=== PATIENT | male | born 1970 | race Caucasian/White ===

== ENCOUNTER → 2016-12-21 | Outpatient (CLI) | payer BC ==
[2016-12-21 11:49] LABS: CH 30.5; CHCM 34.9; HCT 46.1 % (39.0-53.0); HDW 2.76; HGB 15.8 gm/dL (13.0-17.5); MCHC 34.2 g/dL (31.0-37.0); MCV 87.8 fL (80.0-100.0); Mean Platelet Volume 6.7; RBC 5.25 m/uL (4.30-5.90); RDW 12.9 % (11.5-15.5); WBC 6.9 k/uL (3.8-10.6)
[2016-12-21 12:31] LABS: Anion Gap 12 mmol/L; Blood Urea Nitrogen 28 mg/dL (9-20); Carbon Dioxide 29 mmol/L (22-30); Chloride 100 mmol/L (98-107); Non-African American GFR(MDRD) >60 (>60 ml/min/1.73 sqM); Potassium 4.9 mmol/L (3.5-5.1); Sodium 141 mmol/L (137-145)
== END | disposition home or self-care (01) ==
LOC: LABWHC1 10:23
PROVIDERS: ATTEND Internal Medicine Cardiovascular Disease
DX: E78.2 Mixed hyperlipidemia (principal); I10 Essential (primary) hypertension; R06.02 Shortness of breath
CPT/HCPCS: 36415; 80051; 82565; 84443; 84520; 85027

== ENCOUNTER → 2017-12-10 | Outpatient (CLI) | payer BC ==
--- NOTE | 2017-12-10 08:13 | MR ---
EXAMINATION TYPE: MR lumbar spine wo con DATE OF EXAM: 12/10/2017 7:13 AM COMPARISON: NONE HISTORY: Radiculopathy, lumbar region, lower back pain, numbness in legs Multiplanar, MultiSpin echo imaging of the lumbar spine was performed. L1-L2: There is mild decreased signal and loss of height compatible with degenerative disc disease. M ild circumferential disc bulge greatest posteriorly. Mild effacement ventral thecal sac. No evidence for link disc herniation or central stenosis. Visualized neural foramina are patent bilaterally. L2-L3: There is mild decreased signal and loss of height compatible with degenerative disc disease. M ild circumferential disc bulge greatest posteriorly. Mild effacement ventral thecal sac. No evidence for link disc herniation or central stenosis. Visualized neural foramina are patent bilaterally. L3-L4: There is mild decreased signal and loss of height compatible with degenerative disc disease. M ild circumferential disc bulge greatest posteriorly. Mild effacement ventral thecal sac. No evidence for link disc herniation or central stenosis. Degenerative changes of the facet joints resulting in mild right-sided foraminal encroachment. L4-L5: There is mild decreased signal and loss of height compatible with degenerative disc disease. M ild circumferential disc bulge greatest posteriorly. Mild effacement ventral thecal sac. No evidence for link disc herniation or central stenosis. Facet joint arthropathy resulting in bilateral mild. L5-S1: Severe disc desiccation noted. Broad-based posterior disc bulge with annular tear. Small protr usion is difficult to exclude. No evidence for central stenosis or lateral recess stenosis. Facet martha nt arthropathy resulting in bilateral foraminal encroachment. Generative endplate marrow changes shelton ntified. Lumbar segments are intact. No paraspinal masses are identified. Conus medullaris has a normal appe arance. T12 hemangioma identified. IMPRESSION: 1. Multilevel degenerative disc disease. 2. Multilevel disc bulging with some mild foraminal encroachment. See above.
== END | disposition home or self-care (01) ==
LOC: RADMRIMAIN 06:43
PROVIDERS: ATTEND Family Medicine
DX: M51.17 Intervertebral disc disorders with radiculopathy, lumbosacral region (principal)
CPT/HCPCS: 72148

== ENCOUNTER → 2018-09-09 | Outpatient (CLI) | payer BC ==
--- NOTE | 2018-09-09 10:01 | EST ---
EXERCISE STRESS AGE: 48 SEX: M HT: 70" WT: 225 PROTOCOL: Behzad Stress Test STAGE: 4 DURATION OF EXERCISE: 10:00 HEART RATE REST: 67 BLOOD PRESSURE REST: 122/73 MAXIMUM HEART RATE ACHIEVED: 154 MAXIMUM BLOOD PRESSURE: 198/65 85% MPHR: 147 100% MPHR: 173 METS: 11.3 INDICATIONS: Chest pain. CLINICAL INFORMATION: Baseline heart rate was 67 beats per minute. Baseline blood pressure 122/73 mmHg. Baseline 12-lead ECG shows normal sinus rhythm with normal cardiac intervals. Patient exercised on a Behzad protocol for 10 minutes achieving a peak heart rate of 154 beats per minute. Normal blood pressure response to exercise. There was no ECG evidence for ischemia. No arrhythmias were noted. IMPRESSION: Good exercise capacity without any ECG evidence for ischemia or arrhythmia. MMODL / IJN: [id number] /
== END | disposition home or self-care (01) ==
LOC: RADNMMAIN 08:26
PROVIDERS: ATTEND Family Medicine
DX: R07.89 Other chest pain (principal)
CPT/HCPCS: 93017

== ENCOUNTER → 2018-09-15 | Outpatient (CLI) | payer BC ==
--- NOTE | 2018-09-16 11:41 | ECHOF ---
Referral Reason:R07.89 Chest Pain MEASUREMENTS -------- HEIGHT: 182.9 cm WEIGHT: 102.1 kg BP: RVIDd: 2.5 cm (< 3.3) IVSd: 1.1 cm (0.6 - 1.1) LVIDd: 4.8 cm (3.9 - 5.3) LVPWd: 1.3 cm (0.6 - 1.1) IVSs: 1.5 cm LVIDs: 2.8 cm LVPWs: 1.8 cm Ao Diam: 3.1 cm (2.0 - 3.7) AV Cusp: 1.9 cm (1.5 - 2.6) LA Diam: 3.3 cm (2.7 - 3.8) MV EXCURSION: 21.171 mm (> 18.000) MV EF SLOPE: 131 mm/s (70 - 150) EPSS: 0.5 cm MV E Tu: 0.75 m/s MV DecT: 126 ms MV A Tu: 0.37 m/s MV E/A Ratio: 2.04 RAP: 5.00 mmHg RVSP: 15.44 mmHg FINDINGS -------- Sinus rhythm. This was a technically good study. The left ventricular size is normal. There is borderline concentric left ventricular hypertrophy. Overall left ventricular systolic function is normal with, an EF between 55 - 60 %. The right ventricle is normal in size and function. The left atrium is normal in size. The right atrium is normal in size. The aortic valve is trileaflet and appears structurally normal. Mild mitral regurgitation is present. Mild tricuspid regurgitation present. The right ventricular systolic pressure, as measured by Doppl er, is 15.44mmHg. Pulmonic valve appears structurally normal. The aortic root size is normal. Normal inferior vena cava with normal inspiratory collapse consistent with estimated right atrial pre ssure of 5 mmHg. The pericardium is normal. CONCLUSIONS -------- 1. Sinus rhythm. 2. This was a technically good study. 3. The left ventricular size is normal. 4. There is borderline concentric left ventricular hypertrophy. 5. Overall left ventricular systolic function is normal with, an EF between 55 - 60 %. 6. The right ventricle is normal in size and function. 7. The left atrium is normal in size. 8. The right atrium is normal in size. 9. The aortic valve is trileaflet and appears structurally normal. 10. Mild mitral regurgitation is present. 11. Mild tricuspid regurgitation present. 12. The right ventricular systolic pressure, as measured by Doppler, is 15.44mmHg. 13. Pulmonic valve appears structurally normal. 14. The aortic root size is normal. 15. Normal inferior vena cava with normal inspiratory collapse consistent with estimated right atrial pressure of 5 mmHg. 16. The pericardium is normal. DUBBING MACHINE OPERATOR: Rena Sears RDCS
== END | disposition home or self-care (01) ==
LOC: RADECHMAIN 15:29
PROVIDERS: ATTEND Family Medicine
DX: I08.1 Rheumatic disorders of both mitral and tricuspid valves (principal); R07.89 Other chest pain
CPT/HCPCS: 93306

== ENCOUNTER → 2019-07-19 | Outpatient (CLI) | payer BC ==
--- NOTE | 2019-07-19 18:02 | XR ---
EXAMINATION TYPE: XR knee complete bilateral DATE OF EXAM: 07/19/2019 COMPARISON: NONE HISTORY: 49-year-old male bilateral knee pain TECHNIQUE: 3 views each side FINDINGS: Very mild degenerative spurring at the bilateral patellofemoral compartments. No acute fracture, subl uxation, dislocation. Trace knee joint effusions are suggested. IMPRESSION: Mild degenerative spurring in the patellofemoral compartments. Trace knee joint effusions. No acute o sseous abnormality seen.
== END | disposition home or self-care (01) ==
LOC: RADXRMAIN 11:12
PROVIDERS: ATTEND Family Medicine
DX: M76.892 Other specified enthesopathies of left lower limb, excluding foot (principal); M76.891 Other specified enthesopathies of right lower limb, excluding foot; M25.562 Pain in left knee

== ENCOUNTER → 2022-06-29 | Outpatient (CLI) | payer BC ==
--- NOTE | 2022-06-29 15:52 | CT ---
EXAMINATION TYPE: CT abdomen pelvis w con CT DLP: 1538.8 mGycm, Automated exposure control for dose reduction was used. DATE OF EXAM: 06/29/2022 3:25 PM COMPARISON: None. CLINICAL INDICATION:Male, 52 years old with history of A04.72 C diff; abd pain, hx of c diff TECHNIQUE: Standard CT of the abdomen and pelvis following the administration of 100 cc of Isovue 3 00 IV contrast material and oral contrast. Coronal and sagittal reformats were performed. FINDINGS: LOWER CHEST: Unremarkable ABDOMEN LIVER: Subcentimeter hypodense lesion within the inferior right hepatic lobe which is too small to ch aracterize (series 3, image 29). GALLBLADDER AND BILE DUCTS: Unremarkable. PANCREAS: Unremarkable. SPLEEN: Unremarkable. ADRENAL GLANDS: Unremarkable. KIDNEYS AND URETERS: No evidence of hydronephrosis or renal calculus. Kidneys enhance symmetrically w ithout suspicious focal lesion. PELVIS BLADDER: Unremarkable REPRODUCTIVE: Coarse calcifications of the prostate gland are identified. ABDOMEN & PELVIS STOMACH AND BOWEL: Stomach and duodenum are unremarkable. Scattered colonic diverticulosis without ev idence for acute diverticulitis. No evidence of wall thickening or surrounding inflammatory changes. The appendix is at the top end of normal for size without surrounding inflammatory changes. Enteric c ontrast reaches the distal transverse colon. No pericolonic abscess. No evidence of bowel obstruction . PERITONEUM: No evidence of pneumoperitoneum or free fluid. VASCULATURE: No evidence of aortic aneurysm. MUSCULOSKELETAL: No acute osseous abnormalities. Mild osteoarthritic changes of both hips. Degenerati ve changes of the lumbar spine most pronounced at L5-S1 with disc space narrowing, endplate sclerosis , vacuum disc disease, and osteophytosis. LYMPH NODES: No gross evidence for lymphadenopathy. SOFT TISSUE/ABDOMINAL WALL: Unremarkable IMPRESSION: No acute abdominal/pelvic process.
== END | disposition home or self-care (01) ==
LOC: RADCTMAIN 13:25
PROVIDERS: ATTEND Family Medicine
DX: A04.72 Enterocolitis due to Clostridium difficile, not specified as recurrent (principal)
CPT/HCPCS: 74177; Q9967 ×2

== ENCOUNTER → 2024-07-25 | Outpatient (CLI) | payer BC ==
--- NOTE | 2024-07-25 16:12 | US ---
EXAMINATION TYPE: US carotid duplex BILAT DATE OF EXAM: 07/25/2024 COMPARISON: NONE CLINICAL INDICATION: Male, 54 years old with history of R55 SYNCOPE AND COLLAPSE; Syncope TECHNIQUE: Carotid duplex ultrasound examination. Indirect Doppler criteria was utilized. FINDINGS: EXAM MEASUREMENTS: RIGHT: Peak Systolic Velocity (PSV) cm/sec ----- Right CCA: 105.5 ----- Right ICA: 91.9 ----- Right ECA: 114.2 ICA/CCA ratio: 0.9 RIGHT: End Diastole cm/sec ----- Right CCA: 32.8 ----- Right ICA: 23.7 ----- Right ECA: 25.6 LEFT: Peak Systolic Velocity (PSV) cm/sec ----- Left CCA: 113.2 ----- Left ICA: 102.7 ----- Left ECA: 127.0 ICA/CCA ratio: 0.9 LEFT: End Diastole cm/sec ----- Left CCA: 43.1 ----- Left ICA: 26.8 ----- Left ECA: 33.3 VERTEBRALS (direction of flow): Right Vertebral: Antegrade Left Vertebral: Antegrade Rhythm: Normal UNDERWRITER NOTES: No significant stenosis seen IMPRESSION: No hemodynamically significant internal carotid artery stenosis on either side. Criteria for Assigning % of Stenosis / Diameter reduction (Estimation based on the indirect measurements of the internal carotid artery velocities (ICA PSV). 1. Normal (no stenosis)=ICA PSV < 125 cm/s: ratio < 2.0: ICA EDV<40 cm/s. 2. Less than 50% stenosis=ICA PSV < 125 cm/s: ratio < 2.0: ICA EDV<40 cm/s. 3. 50 to 69% stenosis=ICA PSV of 125 to 230 cm/s: ration 2.0 ? 4.0: ICA EDV 40-100 cm/s. 4. Greater than 70% stenosis to near occlusion= ICA PSV > 230 cm/s: ratio > 4.0: ICA EDV > 100 cm/s. 5. Near occlusion= ICA PSV velocities may be low or undetectable: variable ratio and ICA EDV. 6. Total occlusion=unable to detect flow.
--- NOTE | 2024-07-26 10:48 | CA ---
Transthoracic Echo Report Name: Alon Gonzalez Age: 54 Gender: M : 1970 Exam Date: 07/25/2024 16:08 Exam Location: [facility] Ht (in): 70 Wt (lb): 215 Ordering Physician: Maikel Merida DO Attending/Referring Phys: Licensed Optical Dispenser Galian Ochoa RDCS Procedure CPT: Indications: R55 Syncope Cardiac Hx: Technical Quality: Fair Contrast 1: Total Dose (mL): Contrast 2: Total Dose (mL): MEASUREMENTS (Male / Female) Normal Values 2D ECHO LV Diastolic Diameter PLAX 5.3 cm 4.2 - 5.9 / 3.9 - 5.3 cm LV Systolic Diameter PLAX 3.6 cm IVS Diastolic Thickness 0.9 cm 0.6 - 1.0 / 0.6 - 0.9 cm LVPW Diastolic Thickness 1.1 cm 0.6 - 1.0 / 0.6 - 0.9 cm LV Relative Wall Thickness 0.4 LVOT Diameter 2.3 cm LV Diastolic Volume MOD BP 140.8 cm??? 67 - 155 / 56 - 104 cm??? LV Systolic Volume MOD BP 64.6 cm??? 22 - 58 / 19 - 49 cm??? LV Ejection Fraction MOD BP 54.1 % >= 55 % LV Cardiac Index MOD BP 2126.8 cm???/min???m??? LV Diastolic Volume MOD 4C 139.7 cm??? LV Systolic Volume MOD 4C 60.3 cm??? LV Ejection Fraction MOD 4C 56.8 % LV Cardiac Index MOD 4C 2215.7 cm???/min???m??? LV Diastolic Length 4C 8.5 cm LV Systolic Length 4C 6.9 cm LV Diastolic Volume MOD 2C 140.4 cm??? LV Systolic Volume MOD 2C 63.0 cm??? LV Ejection Fraction MOD 2C 55.1 % LV Cardiac Index MOD 2C 2159.2 cm???/min???m??? LV Diastolic Length 2C 8.6 cm LV Systolic Length 2C 7.6 cm LA Volume 60.8 cm??? 18 - 58 / 22 - 52 cm??? LA Volume Index 27.4 cm???/m??? 16 - 28 cm???/m??? Ascending Aorta Diameter 3.4 cm DOPPLER AV Peak Velocity 131.9 cm/s AV Peak Gradient 7.0 mmHg AV Mean Velocity 96.0 cm/s AV Mean Gradient 4.0 mmHg AV Velocity Time Integral 29.9 cm LVOT Peak Velocity 115.1 cm/s LVOT Peak Gradient 5.3 mmHg LVOT Velocity Time Integral 23.4 cm LVOT Stroke Volume 96.6 cm??? LVOT Stroke Volume Index 44.9 ml/m??? LVOT Cardiac Index 2695.2 cm???/min???m??? AV Area Cont Eq vti 3.2 cm??? AV Area Cont Eq pk 3.6 cm??? MV Area PHT 3.4 cm??? Mitral E Point Velocity 65.4 cm/s Mitral A Point Velocity 55.3 cm/s Mitral E to A Ratio 1.2 MV Deceleration Time 221.5 ms PV Peak Velocity 112.0 cm/s PV Peak Gradient 5.0 mmHg FINDINGS Left Ventricle Left ventricular ejection fraction is estimated at 55-60 %. Mildly increased left ventricular systolic volume. Left ventricular wall thickness normal. No obvious regional wall motion abnormalities. Right Ventricle Normal right ventricular size and function. Unable to estimate the right ventricular systolic pressure. Right Atrium Normal right atrial size. Left Atrium Mildly increased left atrial volume. Mitral Valve Structurally normal mitral valve. No evidence for mitral valve prolapse. No mitral stenosis. Trace mitral regurgitation. Aortic Valve Trileaflet aortic valve. Aortic valve sclerosis. No aortic stenosis. No aortic regurgitation. Tricuspid Valve Structurally normal tricuspid valve. No tricuspid stenosis. No tricuspid regurgitation. Pulmonic Valve Pulmonic valve not well visualized. No pulmonic stenosis. Trace pulmonic regurgitation. Pericardium No pericardial effusion. Echo free space anterior to the right ventricle likely represents a fat pad. Aorta Normal size aortic root and proximal ascending aorta. CONCLUSIONS Normal LV size and systolic function. Mild/borderline concentric LVH. No significant abnormality on the Doppler exam. No pericardial effusion. Possible fat pad. Previewed by: Dr. Evelyn Moses MD (Electronically Signed) Final Date: 26 July 2024 10:47
== END | disposition home or self-care (01) ==
LOC: RADUSWWP 15:34
PROVIDERS: ATTEND Family Medicine
DX: R55 Syncope and collapse (principal)
CPT/HCPCS: 93306; 93880

== ENCOUNTER → 2024-08-28 | Outpatient (CLI) | payer BC ==
--- NOTE | 2024-08-28 19:14 | MR ---
EXAMINATION TYPE: MR brain wo/w con DATE OF EXAM: 08/28/2024 6:45 PM CLINICAL INDICATION: Male, 54 years old with history of G43.909 MIGRAINE, UNSP, NOT INTRACTABLE, WITH OUT S; PHH, Headache and vision issues, Had good vision 20/20 for 3 days and then went away. Migraine s COMPARISON: None. TECHNIQUE: Multi planar, multi sequence imaging was performed through the brain including: T1, T2, In version recovery, susceptibility weighted imaging and gradient echo imaging and Diffusion weighted im aging. The patient was then given intravenous contrast and multi planar, T1 fat-saturation images wer e obtained. IV Contrast: 9.5 cc Gadavist FINDINGS: The greco-white junctions, ventricular system, basal cisterns appear unremarkable. Diffusion-weighted imaging shows no evidence of restricted diffusion to suggest acute/subacute infarct. Intracranial ar terial flow voids are maintained. Midline structures show no abnormality. Scattered foci of high T2 s ignal intensity are seen within the periventricular white matter. The susceptibility weighted images do not reveal any evidence for micro-hemorrhage. After administration of gadolinium, no abnormal enha ncement is seen. The bone marrow signal is within normal limits. Paranasal sinuses and mastoid air cells: No significant paranasal sinus disease. Visualized orbits: Orbital contents are intact. IMPRESSION: 1. No evidence of intracranial mass, acute/subacute infarct, or abnormal enhancement. 2. Nonspecific white matter changes, likely related to small vessel ischemic disease. [facility], , 08/28/2024 7:11 PM
== END | disposition home or self-care (01) ==
LOC: RADMRIMAIN 17:58
PROVIDERS: ATTEND Family Medicine
DX: G43.909 Migraine, unspecified, not intractable, without status migrainosus (principal)
CPT/HCPCS: 70553

== ENCOUNTER → 2025-04-27 | Outpatient (CLI) | payer BC ==
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
== END | disposition home or self-care (01) ==
LOC: RADMRIMAIN 20:45
PROVIDERS: ATTEND Emergency Medicine
DX: M47.22 Other spondylosis with radiculopathy, cervical region (principal); M51.372 Other intervertebral disc degeneration, lumbosacral region with discogenic back pain and lower extremity pain; M51.16 Intervertebral disc disorders with radiculopathy, lumbar region; M99.71 Connective tissue and disc stenosis of intervertebral foramina of cervical region; M50.121 Cervical disc disorder at C4-C5 level with radiculopathy
CPT/HCPCS: 72141; 72148